=== PATIENT | female | born 1970 | race Caucasian/White ===

== ENCOUNTER 2020-08-22 14:55 | Emergency (ER) | payer OTHER ==
[~2020-08-22] VITALS: Ht 152.4 cm; Wt 102.1 kg
[2020-08-22 15:02] VITALS: BP 134/85; Ht 152.4 cm; Wt 102.1 kg
== END 2020-08-22 16:18 | disposition left against medical advice (07) ==
LOC: ED 14:55
DX: Z53.21 Procedure and treatment not carried out due to patient leaving prior to being seen by health care provider (principal)